=== PATIENT | female | born 1970 | race Caucasian/White ===

== ENCOUNTER 2017-11-23 19:47 | Emergency (ER) | payer BC, SELFPAY ==
[2017-11-23 19:49] VITALS: BP 120/84; PULSE 108; RESP 25; TEMP 36.9; O2SAT 97; BMI 24.0
--- NOTE | 2017-11-23 20:10 | RAD_ITS ---
STUDY: X-RAY CHEST REASON FOR EXAM: Female, 47 years old. Cough TECHNIQUE: Frontal and lateral views of the chest COMPARISON: None. FINDINGS: The lungs are clear. There are no pleural effusions. There is no pneumothorax. The heart is normal in size. The visualized osseous structures are within normal limits. RAD/Chest PA and Lateral IMPRESSION: No acute thoracic pathology. Electronically Signed: Jerzy Simmons, at 21:48 EDT Tel , Service support ,
[2017-11-23 20:22] VITALS: O2SAT 95
[2017-11-23] MEDS: predniSONE 20 MG Tablet 60 MG PO (20:25)
[2017-11-23] MEDS: Ipratropium/Albuterol Sulfate 3 ML AMPUL.NEB INHALATION (20:30)
[2017-11-23 20:31] VITALS: PULSE 92; RESP 18
--- NOTE | 2017-11-23 22:17 | ED.VISSUMM ---
- ER Visit Summary Date of Service: 11/23/17 Chief Complaint: Asthma, cough History of Present Illness: The patient is a 47 F ends to the emergency department cough and shortness of breath. Patient has a significant history of asthma. [place] States over the past 10 days, she has had cough with some productive sputum. She did use her inhaler nebulizer with little relief. She denies chest pain. She denies pleuritic pain. She is no history of pulmonary embolus. She does not smoke. She states to the point where she is having posttussive emesis. She has not had fevers or chills. Physical Examination: Vital signs reviewed General: Well-nourished, well-developed Head: Normocephalic, atraumatic Eyes: Pupils equal and reactive, extraocular muscles intact Neck, supple, no lymphadenopathy Heart: Regular rate and rhythm Respiratory: No distress, wheezing throughout Abdomen: Soft, nontender, nondistended, no peritoneal signs Back: Nontender Extremities: Nontender, no edema, no cords Skin: Normal color no rash Neuro: Alert and oriented, no focal or lateralizing deficits Test Results: [] Emergency Department Course and Treatment: X-rays were obtained. There is no evidence of focal infiltrate. The patient was given DuoNeb treatment. She was also given oral prednisone, Lortab for cough, one Phenergan tablet. On reevaluation she is resting comfortably. She has had resolution of her wheezing. She has no tachypnea. She has no hypoxia. I am going to continue her on a prednisone burst, cough suppressant, and antiemetic. Patient will be discharged to home. Treatment Plan: [] Disposition: Discharge Impression: 1. Asthma exacerbation This note was generated with [employer] dictation software. It may contain incorrect words, spelling, and punctuation that were not noted in review of the chart prior to signing ED Disposition - Plan for ED Patient: Chief Complaint: Asthma Instructions: ED Bronchitis Asthmatic Prescriptions: Hydrocodone Bit/Homatropine [Hycodan Syrup] 5 ml PO Q6H PRN PRN #50 ml PRN Reason: Cough proMETHazine tablet [Phenergan] 25 mg PO Q6H PRN PRN #10 tab PRN Reason: Nausea Prednisone 10 mg PO UD #33 tab Referrals: Care Physician,No Primary [Primary Care Provider] -
[2017-11-23] MEDS: proMETHazine 25 MG Tablet PO (22:27)
[2017-11-23] MEDS: HYDROCODONE/APAP 7.5-325/15ML 15 ML UDC 10 ML PO (22:27)
[2017-11-23 22:28] VITALS: BP 128/83; PULSE 80; PULSE 86; O2SAT 98
== END 2017-11-23 22:30 | disposition home or self-care (01) ==
PROVIDERS: Emergency Provider Emergency Medicine
DX: J45.901 Unspecified asthma with (acute) exacerbation (principal); Z79.51 Long term (current) use of inhaled steroids
CPT/HCPCS: 71046; 94640; 99283